=== PATIENT | female | born 1950 | race Caucasian/White ===

== ENCOUNTER 2016-09-02 13:47 | Emergency (ER) | payer MEDICARE, BC ==
[~2016-09-02] VITALS: Ht 167.6 cm; Wt 53.6 kg
[~2016-09-02 13:47] MED LIST: DESYREL DIVIDO150 M1 PO; KLONOPIN 1MG1 MG PO; LEXAPRO 5MG5 MG PO; LORTAB 5/500 501 TAB PO; MELATONIN20 MG PO; NORCO 325 MG-7.1 TAB PO; PRILOSEC 20MG20 MG PO
[2016-09-02 13:51] VITALS: TEMP 98.1
[2016-09-02] MEDS ORDERED: MELATONIN5 M1 SL (14:09)
[2016-09-02] MEDS ORDERED: FOSAMAX 70MG TA70 MG PO (14:10)
[2016-09-02 14:52] LABS: PH 6 (5-8); SQUAMOUS EPITHELIAL 0-2 /hpf; URINE APPEARANCE Clear; URINE BACTERIA Rare /hpf; URINE BILIRUBIN Negative (NEGATIVE); URINE BLOOD 1+ (NEGATIVE); URINE COLOR Straw; URINE GLUCOSE Negative (NEGATIVE); URINE KETONE 1+ (NEGATIVE); URINE RBC 0-2 /hpf; URINE UROBILINOGEN Negative (NEGATIVE)
[2016-09-02 15:39] LABS: ADJUSTED CALCIUM 9.2 mg/dL (8.4-10.2); ALANINE AMINOTRANSFERASE 20 U/L (9-52); ALBUMIN 4.1 gm/dL (3.5-5.0); ALKALINE PHOSPHATASE 38 U/L (50-136); ANION GAP 12 mmol/L (7-16); BLOOD UREA NITROGEN 7 mg/dL (7-17); CALCIUM 9.3 mg/dL (8.4-10.2); CARBON DIOXIDE 25 mmol/L (22-30); CHLORIDE 93 mmol/L (98-107); CREATININE, serum 0.66 mg/dL (0.52-1.25); GLUCOSE 97 mg/dL (74-106); LIPASE 68 U/L (23-300); POTASSIUM 4.8 mmol/L (3.4-5.0); SODIUM 129 mmol/L (137-145); TOTAL PROTEIN 6.8 gm/dL (6.4-8.2)
[2016-09-02 15:40] LABS: C-REACTIVE PROTEIN < 0.5 mg/dL (0.0-0.9)
[2016-09-02 15:44] LABS: BASO % 0.9 % (0.0-2.0); GRAN # 1.6 (1.4-6.5); GRAN % 48.2 % (42.2-75.2); HEMOGLOBIN 13.3 g/dl (12.5-16.0); LYMPH # 1.4 (1.2-3.4); LYMPH % 42.8 % (20.0-51.0); MEAN CELL VOLUME 86 fl (80.0-100.0); MEAN CORPUSCULAR HEMOGLOBIN 32 pg (27.0-31.0); MEAN CORPUSCULAR HGB CONC 37 g/dl (33.0-37.0); MEAN PLATELET VOLUME 9.4 fl (7.4-10.4); MONO # 0.3 (0.1-0.6); MONO % 7.8 % (1.7-9.3); PLATELET COUNT 164 K/mm3 (130-400); RED BLOOD COUNT 4.21 M/mm3 (4.10-5.30); REDCELL DISTRIBUTION WIDTH-CV 11.5 % (11.5-14.5); WHITE BLOOD COUNT 3.3 K/mm3 (4.8-10.8)
[2016-09-02 15:46] LABS: HEMATOCRIT 36.3 % (37.0-47.0)
[2016-09-02 15:49] LABS: TROPONIN-I < 0.012 ng/mL (0.000-0.034)
[2016-09-02] MEDS ORDERED: ZOFRAN 4MG T4 MG/TAB PO (17:12)
[2016-09-02] MEDS ORDERED: NORCO 325 MG-51 TAB PO (17:12)
[2016-09-02] MEDS ORDERED: OMNICEF 300MG300 MG PO (17:12)
[2016-09-02 17:32] VITALS: BP 152/72; PULSE 63
== END 2016-09-02 17:31 | disposition home or self-care (01) ==
LOC: COL.ER 13:47
PROVIDERS: Emergency Medicine
DX: B02.9 Zoster without complications (principal); N39.0 Urinary tract infection, site not specified; R10.84 Generalized abdominal pain; R11.10 Vomiting, unspecified; B96.20 Unspecified Escherichia coli [E. coli] as the cause of diseases classified elsewhere
CPT/HCPCS: J1170; J2405; J7030

== ENCOUNTER 2016-09-10 16:03 | Emergency (ER) | payer MEDICARE, BC ==
[~2016-09-10] VITALS: Ht 167.6 cm; Wt 52.3 kg
[~2016-09-10 16:03] MED LIST changes: +FOSAMAX 70MG TA70 MG PO; +MELATONIN5 M1 SL; +NORCO 325 MG-51 TAB PO; +OMNICEF 300MG300 MG PO; +ZOFRAN 4MG T4 MG/TAB PO
[2016-09-10 16:09] VITALS: TEMP 98.1
[2016-09-10 17:49] LABS: BASO # 0.1 (0.0-0.2); EOS % 0.4 % (0-4.0); GRAN # 2.5 (1.4-6.5); GRAN % 48.2 % (42.2-75.2); HEMATOCRIT 37.4 % (37.0-47.0); HEMOGLOBIN 13.3 g/dl (12.5-16.0); LYMPH # 2.2 (1.2-3.4); LYMPH % 41.8 % (20.0-51.0); MEAN CELL VOLUME 88 fl (80.0-100.0); MEAN CORPUSCULAR HEMOGLOBIN 31 pg (27.0-31.0); MEAN CORPUSCULAR HGB CONC 36 g/dl (33.0-37.0); MEAN PLATELET VOLUME 9.2 fl (7.4-10.4); MONO # 0.4 (0.1-0.6); MONO % 8.4 % (1.7-9.3); PLATELET COUNT 254 K/mm3 (130-400); RED BLOOD COUNT 4.24 M/mm3 (4.10-5.30); REDCELL DISTRIBUTION WIDTH-CV 12.3 % (11.5-14.5); WHITE BLOOD COUNT 5.1 K/mm3 (4.8-10.8)
[2016-09-10 18:13] LABS: ADJUSTED CALCIUM 9.5 mg/dL (8.4-10.2); ALANINE AMINOTRANSFERASE 29 U/L (9-52); ALBUMIN 4.3 gm/dL (3.5-5.0); ALKALINE PHOSPHATASE 38 U/L (50-136); ANION GAP 15 mmol/L (7-16); BILIRUBIN,TOTAL 0.9 mg/dL (0.0-1.0); BLOOD UREA NITROGEN 9 mg/dL (7-17); CALCIUM 9.7 mg/dL (8.4-10.2); CARBON DIOXIDE 22 mmol/L (22-30); CHLORIDE 96 mmol/L (98-107); CREATININE, serum 0.65 mg/dL (0.52-1.25); GLUCOSE 102 mg/dL (74-106); LIPASE 133 U/L (23-300); POTASSIUM 3.6 mmol/L (3.4-5.0); SODIUM 133 mmol/L (137-145)
[2016-09-10 18:16] LABS: C-REACTIVE PROTEIN < 0.5 mg/dL (0.0-0.9)
[2016-09-10] MEDS ORDERED: PHENERGAN 25 TA25 MG PO (19:47)
[2016-09-10] MEDS ORDERED: PHENERGAN25 MG RC (20:27)
[2016-09-10] MEDS ORDERED: AMITIZA24 MCG PO (20:29)
[2016-09-10] MEDS ORDERED: ATIVAN 1MG T1 MG/TAB PO (20:58)
[2016-09-10 21:16] VITALS: BP 130/76; PULSE 76
== END 2016-09-10 21:16 | disposition home or self-care (01) ==
LOC: COL.ER 16:03
PROVIDERS: Emergency Medicine
DX: K59.00 Constipation, unspecified (principal); Z79.891 Long term (current) use of opiate analgesic; F41.9 Anxiety disorder, unspecified
CPT/HCPCS: J1170; J2060; J2405; J2765; J7030; Q9967

== ENCOUNTER 2016-09-15 14:59 | Outpatient (CLI) | payer MEDICARE, BC ==
[~2016-09-15] VITALS: Ht 167.6 cm; Wt 53.0 kg
[~2016-09-15 14:59] MED LIST changes: +AMITIZA24 MCG PO; +ATIVAN 1MG T1 MG/TAB PO; +PHENERGAN 25 TA25 MG PO; +PHENERGAN25 MG RC
[2016-09-15 15:15] VITALS: BP 129/74; PULSE 80; TEMP 97.6
== END 2016-09-15 18:04 | disposition home or self-care (01) ==
LOC: EUO 14:59
DX: K59.09 Other constipation (principal)

== ENCOUNTER 2016-10-01 13:59 | Day surgery (SDC) | payer MEDICARE, BC ==
[~2016-10-01] VITALS: Ht 170.2 cm; Wt 52.7 kg
[2016-10-01] MEDS ORDERED: ATIVAN 1MG T1 MG/TAB PO (14:18)
[2016-10-01] MEDS ORDERED: PROBIOTIC FORMU1 CAP PO (14:19)
[2016-10-01 14:49] VITALS: BP 116/72; PULSE 92; TEMP 98.8
[2016-10-01 16:00] VITALS: BP 136/70; PULSE 81; TEMP 98.5
[2016-10-01 16:15] VITALS: BP 138/71; PULSE 75
[2016-10-01 16:30] VITALS: BP 121/70; PULSE 70
[2016-10-01] MEDS ORDERED: PRILOSEC 20MG20 MG PO (16:33)
== END 2016-10-01 17:10 | disposition home or self-care (01) ==
LOC: SDCO 13:59
DX: K21.0 Gastro-esophageal reflux disease with esophagitis (principal); K22.70 Barrett's esophagus without dysplasia; R11.2 Nausea with vomiting, unspecified; E78.00 Pure hypercholesterolemia, unspecified; I10 Essential (primary) hypertension; Z79.899 Other long term (current) drug therapy; Z80.0 Family history of malignant neoplasm of digestive organs
CPT/HCPCS: J2405; J2704; J7030

== ENCOUNTER 2016-10-08 09:51 | Day surgery (SDC) | payer MEDICARE, BC ==
[~2016-10-08] VITALS: Ht 168.9 cm; Wt 52.7 kg
[~2016-10-08 09:51] MED LIST changes: +PROBIOTIC FORMU1 CAP PO
[2016-10-08 10:38] VITALS: BP 130/79; PULSE 71; TEMP 98.7
[2016-10-08] MEDS ORDERED: [UNRECOGNIZED DRUG - OTHER] PO (10:44)
[2016-10-08 11:37] VITALS: BP 97/60; PULSE 77; TEMP 98.2
[2016-10-08 11:52] VITALS: BP 85/54; PULSE 71
[2016-10-08 12:07] VITALS: BP 112/53; PULSE 76
[2016-10-08 12:22] VITALS: BP 106/57; PULSE 70
[2016-10-08 13:51] VITALS: BP 89/49; PULSE 71
== END 2016-10-08 12:40 | disposition home or self-care (01) ==
LOC: SDCO 09:51
DX: K59.00 Constipation, unspecified (principal); E78.00 Pure hypercholesterolemia, unspecified; I10 Essential (primary) hypertension; K21.9 Gastro-esophageal reflux disease without esophagitis; R11.2 Nausea with vomiting, unspecified; Z80.0 Family history of malignant neoplasm of digestive organs
CPT/HCPCS: OP; J2250; J3010

== ENCOUNTER → 2016-11-11 | Outpatient (CLI) | payer MEDICARE, BC ==
[~2016-11-11] MED LIST changes: +[UNRECOGNIZED DRUG - OTHER] PO
== END ==
LOC: MC.RAD 10:30
DX: R92.1 Mammographic calcification found on diagnostic imaging of breast (principal); N60.01 Solitary cyst of right breast

== ENCOUNTER → 2016-12-14 | Outpatient (CLI) | payer MEDICARE, BC | LOC: BHSO 14:39 | DX: F41.1 Generalized anxiety disorder (principal) ==

== ENCOUNTER → 2017-04-29 | Outpatient (CLI) | payer MEDICARE, BC | LOC: BHSO 11:35 | DX: F41.1 Generalized anxiety disorder (principal) ==

== ENCOUNTER → 2018-02-27 | Outpatient (CLI) | payer MEDICARE, BC | LOC: BHSO 09:50 | DX: F41.1 Generalized anxiety disorder (principal) | CPT/HCPCS: G0463 ==